=== PATIENT | female | born 1925 | race Caucasian/White ===

== ENCOUNTER 2016-03-19 22:25 | Emergency (ER) | payer MEDICARE, BC, MEDICAID ==
[~2016-03-19] VITALS: Ht 157.5 cm; Wt 49.9 kg
[~2016-03-19 22:25] MED LIST: ACETAMINOPHEN500 M2 PO; ADULT LOW DOSE81 MG PO; ALTACE10 MG PO; ASPIRIN 325MG325 MG PO; ATORVASTATIN CA20 M1 PO; CARVEDILOL3.125 MG PO; CARVEDILOL6.25 MG PO; CEFDINIR 300MG300 MG PO; CHEWABLE ASPIRI81 MG PO; CLOPIDOGREL75 MG PO; CONSTULOSE10 GM/15 M PO; COREG 3.125M3.125 MG PO; COREG6.25 MG PO; DOCUSATE SODIU100 MG PO; EPIPEN1 MG/ML MR; GOOD NEIGHBOR P20 M1 PO; HYDROCODONE-APA1 TA1 PO; LACTULOSE10 GM/15 M PO; LEVAQUIN500 MG PO; LORTAB 5/500 501 TAB PO; MECLIZINE HYDRO25 MG PO; MECLIZINE12.5 M1 PO; MECLIZINE12.5 MG PO; MECLIZINE25 MG PO; MIRTAZAPINE30 MG PO; NITROQUICK0.4 MG SL; ONDANSETRON HYDR4 MG PO; OYSTER SHELL 51 EACH PO; OYSTER SHELL CA1 T11 PO; PRAVACHOL 20MG.20 MG PO; TEARS NATURALE OP
[2016-03-19] MEDS ORDERED: FEOSOL325 MG PO (22:40)
[2016-03-19 22:55] LABS: HEMOGLOBIN 9.8 g/dL (12.2-16.2); LYMPH # 1.5 K/mm3 (0.7-4.5); LYMPH % 39.5 % (10-50.0)
--- NOTE | 2016-03-19 23:22 | Emergency Room Report ---
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 PER [facility] REPORTS STARTED APPROX 30 MINUTES AGO. PT WAS GIVEN TYLENOL AND 1 X NTG BY [facility] STAFF. PT STATES SHE IS ONLY HAVING PAIN NOW WHEN SHE TAKES A DEEP BREATH Onset of symptoms date/time:03/19/16 or onset unknown for: Treatment Prior to Arrival: PT TRANSPORTED TO ED BY EMS. IV STARTED IN LEFT FOREARM. 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 N Clinical Suspician of Infection? N Mental Status: 1 - Regular (Normal Baseline) Sepsis Risk: Have you (or family members/close friends) recently traveled outside the [place]? N If Yes, where/when: Have you had exposure to infectious disease within the past month? N TB? Other? Specify: Source patient, RN notes reviewed, family, EMS, skilled nursing records, old records Exam Limitations no limitations Comment pt with chest pain and sob at [facility] Cardiac Chest Pain Chest pain indicative of cardiac No Timing/Duration this evening Severity moderate ALLERGIES Coded Allergies: Influenza Virus Vaccines (08/27/15) Penicillins (08/27/15) erythromycin base (08/27/15) etodolac (08/27/15) Home Medications Active Scripts Aspirin (Adult Low Dose Aspirin EC) 81 MG PO DAILY #30 TAB Ref 11 Prov: 08/31/15 Omeprazole 20 MG PO BID #60 TCP Ref 2 Prov: 08/31/15 Reported Medications Mirtazapine 30 MG PO QHS #10 TAB Lactulose (Lactulose) 20 GM PO DAILYP PRN BOWELS Nitroglycerin (Nitroquick) 0.4 MG SL PRN Atorvastatin Calcium 40 MG PO DAILY #90 Calcium Carbonate/Vitamin D3 (Oyster Shell 500 MG + Vit D Tb) 1 EACH PO DAILY Docusate Sodium 250 MG PO DAILYP PRN BOWEL Acetaminophen 500 MG PO Q4HP PRN FEVER/PAIN Carvedilol (Carvedilol 3.125MG) 3.125 MG PO BID Ferrous Sulfate (Feosol) 325 MG PO DAILY History Medical History General CAD? Yes Angina: Yes [place]: Yes Hypertension? Yes Hyperlipidemia? Yes CHF? No DVT? No PE? No COPD? No Asthma? No Anemia? No GERD? No Gastric ulcers? No GI Bleed? No Hernia? No Thyroid Problems? No Hypothyroidism? No CVA? Yes Seizures? No Diabetes? No Insulin Dependent: No Insulin Pump: No Home FSBS? No Renal Insuffiency? No End Stage Renal Disease? No UTI? No Stones? No BPH? No GB Disease: No Nephritic Syndrome? No Asplenia? No Hepatitis? No Sickle Cell Disease? No Arthritis? Yes Migraines? No Cataracts? No Glaucoma? No MRSA? No HIV? No TB? No Anxiety? No Depression? No Cancer? No More? No Additional hx: DEMENTIA, DYSPHAGIA Immunization Hx DT/Tetanus > 10 Years Ago Flu Refused Pneumonia Received In Past Surgical Hx Previous Surgery?Y APPENDECTOMY OVARIAN CYST REMOVAL HEMMORRHOID CABGX3 L EYE DETACHED RETINA HEART STENT Family History Family Hx Diabetes Yes CAD No Hypertension Yes Hyperlipidemia Yes Cancer Yes TB No Social History Smoking Hx Smoker: Never Smoker Tobacco: No Type N/A Are you/the child exposed to second-hand smoke: No Alcohol Alcohol: No Drugs none Review of Systems All Other Systems Reviewed and Negative Constitutional denies fever Eyes denies drainage ENT denies: ear pain, epistaxis, throat pain. Respiratory cough, denies shortness of breath, denies wheezing Cardiovascular see HPI, chest pain, denies syncope Gastrointestinal denies diarrhea, denies vomiting Genitourinary denies: dysuria, frequency, hesitancy. Musculoskeletal denies back pain, denies joint pain, denies neck pain Skin denies rash Psychiatric/Neurological denies headache, denies seizure Physical Exam Vital Signs Vital Signs Date Time Temp Pulse Resp B/P Pulse O2 O2 Flow FiO2 Ox Delivery Rate 03/20 0131 69 20 135/55 97 03/20 0050 69 20 150/73 98 03/19 2354 66 20 131/52 98 03/19 2324 66 18 113/47 94 03/19 2225 98.6 70 18 145/76 99 - WBC >12,000 or <4,000 or 10% bands? 2 or more SIRS Criteria Met? B/P:135/55 MAP:99 Creatinine >2.0? UA output<0.5ml/kg/hr for 2 hrs? Platelet count >100,000? Lactate >2.0mmol/1? INR >1.2 or PTT > than 60 sec? Evidence of Organ Dysfunction? Provider documented clinical suspician of infection? N Sepsis Criteria Count: 0 Sepsis Risk: General Appearance no apparent distress Eye Exam - bilateral eye PERRL, bilateral eye EOMI Ear, Nose, Throat normal ENT inspection Neck supple Respiratory Status No: respiratory distress. Lung Sounds bilateral: lungs clear. 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 No Results/Orders Laboratory Tests 03/19/163: Sodium 139, Potassium 3.4 L, Chloride 103, Carbon Dioxide 28, BUN 20 H, Creatinine 0.6, Estimated Creat Clear 50, Estimated GFR (MDRD) 94, Glucose 95, Calcium 8.2 L, Total Bilirubin 0.2, AST 30, ALT 23, Alkaline Phosphatase 90, Creatine Kinase 41, CK-MB (CK-2) Rel Index 1.5, CK and CKMB Interp 0.6, Troponin I 0.05, Total Protein 5.8 L, Albumin 3.0 L, Globulin 2.8, Albumin/Globulin Ratio 1.1, WBC 3.8 L, RBC 3.62 L, Hgb 9.8 L, Hct 31.5 L, MCV 87.1, RDW 18.3 H, Plt Count 191, MPV 8.4, Gran % 46.8, Gran # 1.8, Lymphocytes % 39.5, Monocytes % 5.5, Eosinophils % 7.1, Basophils % 1.1, Lymphocytes # 1.5, Monocytes # 0.2, Eosinophils # 0.3, Basophils # 0.0, PUBS MCHC 31.2 L, MCH 27.2 Current Medication Orders Sig/Adarsh Start time Last Medication Dose Route Stop Time Status Admin Sodium Chloride 10 ML PRN PRN 03/19 2245 AC IV 03/20 2236 Sodium Chloride 10 ML PRN PRN 03/19 2245 AC IV 03/20 2236 Orders Procedure Date/time Status DIET-NOTHING BY MOUTH 03/[address] CHEST W/O CONTRAST 03/[address] SCAN REQ 03/19 2355 Active ELECTROCARDIOGRAM REQUEST 03/19 2237 Active CHEST-PORTABLE 03/19 2237 Active IV SALINE LOCK 03/19 2237 Active CBC WITH AUTO DIFF 03/19 2237 Complete CARDIAC ENZYMES 03/19 2237 Complete CHEM 12 PROFILE 03/19 2237 Complete 12 LEAD EKG-JUANA (INITIAL) 03/19 2224 Active CM/EKG CM/fancy stitcher Rhythm Normal Sinus Rhythm EKG non-spec. ST/Twave chgs XRAY/CT/US XRAY/CT/US 1 XRAY chest XR interpretation by reviewed by me Xray Results abnormal (possible pxt) XRAY/CT/US [address] interpretation by discussed w/radiologist Time results known: 0141 CT Results normal/NAD Departure Departure Time of Disposition 136 Disposition DC Home or Self Care(routine) Clinical Impression Primary Impression: Chest pain Qualifiers: Chest pain type: unspecified Qualified Code: R07.9 - Chest pain, unspecified Secondary Impressions: Anemia Qualifiers: Anemia type: unspecified type Qualified Code: D64.9 - Anemia, unspecified Condition STABLE Referrals Alfa Moody MD (Family) Patient Instructions DI for Atypical Chest Pain Additional Instructions resume prev orders Discharge Counseling Counseled pt/family regarding diagnosis, test results, follow up needs ED Critical Care Critical Care No at 0141
--- NOTE | 2016-03-19 23:22 | Emergency Room Report ---
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 PER [facility] REPORTS STARTED APPROX 30 MINUTES AGO. PT WAS GIVEN TYLENOL AND 1 X NTG BY [facility] STAFF. PT STATES SHE IS ONLY HAVING PAIN NOW WHEN SHE TAKES A DEEP BREATH Onset of symptoms date/time:03/19/16 or onset unknown for: Treatment Prior to Arrival: PT TRANSPORTED TO ED BY EMS. IV STARTED IN LEFT FOREARM. 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 N Clinical Suspician of Infection? N Mental Status: 1 - Regular (Normal Baseline) Sepsis Risk: Have you (or family members/close friends) recently traveled outside the [place]? N If Yes, where/when: Have you had exposure to infectious disease within the past month? N TB? Other? Specify: Source patient, RN notes reviewed, family, EMS, [facility] records, old records Exam Limitations no limitations Comment pt with chest pain and sob at [facility] Cardiac Chest Pain Chest pain indicative of cardiac No Timing/Duration this evening Severity moderate ALLERGIES Coded Allergies: Influenza Virus Vaccines (08/27/15) Penicillins (08/27/15) erythromycin base (08/27/15) etodolac (08/27/15) Home Medications Active Scripts Aspirin (Adult Low Dose Aspirin EC) 81 MG PO DAILY #30 TAB Ref 11 Prov: 08/31/15 Omeprazole 20 MG PO BID #60 TCP Ref 2 Prov: 08/31/15 Reported Medications Mirtazapine 30 MG PO QHS #10 TAB Lactulose (Lactulose) 20 GM PO DAILYP PRN BOWELS Nitroglycerin (Nitroquick) 0.4 MG SL PRN Atorvastatin Calcium 40 MG PO DAILY #90 Calcium Carbonate/Vitamin D3 (Oyster Shell 500 MG + Vit D Tb) 1 EACH PO DAILY Docusate Sodium 250 MG PO DAILYP PRN BOWEL Acetaminophen 500 MG PO Q4HP PRN FEVER/PAIN Carvedilol (Carvedilol 3.125MG) 3.125 MG PO BID Ferrous Sulfate (Feosol) 325 MG PO DAILY History Medical History General CAD? Yes Angina: Yes [place]: Yes Hypertension? Yes Hyperlipidemia? Yes CHF? No DVT? No PE? No COPD? No Asthma? No Anemia? No GERD? No Gastric ulcers? No GI Bleed? No Hernia? No Thyroid Problems? No Hypothyroidism? No CVA? Yes Seizures? No Diabetes? No Insulin Dependent: No Insulin Pump: No Home FSBS? No Renal Insuffiency? No End Stage Renal Disease? No UTI? No Stones? No BPH? No GB Disease: No Nephritic Syndrome? No Asplenia? No Hepatitis? No Sickle Cell Disease? No Arthritis? Yes Migraines? No Cataracts? No Glaucoma? No MRSA? No HIV? No TB? No Anxiety? No Depression? No Cancer? No More? No Additional hx: DEMENTIA, DYSPHAGIA Immunization Hx DT/Tetanus > 10 Years Ago Flu Refused Pneumonia Received In Past Surgical Hx Previous Surgery?Y APPENDECTOMY OVARIAN CYST REMOVAL HEMMORRHOID CABGX3 L EYE DETACHED RETINA HEART STENT Family History Family Hx Diabetes Yes CAD No Hypertension Yes Hyperlipidemia Yes Cancer Yes TB No Social History Smoking Hx Smoker: Never Smoker Tobacco: No Type N/A Are you/the child exposed to second-hand smoke: No Alcohol Alcohol: No Drugs none Review of Systems All Other Systems Reviewed and Negative Constitutional denies fever Eyes denies drainage ENT denies: ear pain, epistaxis, throat pain. Respiratory cough, denies shortness of breath, denies wheezing Cardiovascular see HPI, chest pain, denies syncope Gastrointestinal denies diarrhea, denies vomiting Genitourinary denies: dysuria, frequency, hesitancy. Musculoskeletal denies back pain, denies joint pain, denies neck pain Skin denies rash Psychiatric/Neurological denies headache, denies seizure Physical Exam Vital Signs Vital Signs Date Time Temp Pulse Resp B/P Pulse O2 O2 Flow FiO2 Ox Delivery Rate 03/20 0131 69 20 135/55 97 03/20 0050 69 20 150/73 98 03/19 2354 66 20 131/52 98 03/19 2324 66 18 113/47 94 03/19 2225 98.6 70 18 145/76 99 - WBC >12,000 or <4,000 or 10% bands? 2 or more SIRS Criteria Met? B/P:135/55 MAP:99 Creatinine >2.0? UA output<0.5ml/kg/hr for 2 hrs? Platelet count >100,000? Lactate >2.0mmol/1? INR >1.2 or PTT > than 60 sec? Evidence of Organ Dysfunction? Provider documented clinical suspician of infection? N Sepsis Criteria Count: 0 Sepsis Risk: General Appearance no apparent distress Eye Exam - bilateral eye PERRL, bilateral eye EOMI Ear, Nose, Throat normal ENT inspection Neck supple Respiratory Status No: respiratory distress. Lung Sounds bilateral: lungs clear. 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 No Results/Orders Laboratory Tests 03/19/163: Sodium 139, Potassium 3.4 L, Chloride 103, Carbon Dioxide 28, BUN 20 H, Creatinine 0.6, Estimated Creat Clear 50, Estimated GFR (MDRD) 94, Glucose 95, Calcium 8.2 L, Total Bilirubin 0.2, AST 30, ALT 23, Alkaline Phosphatase 90, Creatine Kinase 41, CK-MB (CK-2) Rel Index 1.5, CK and CKMB Interp 0.6, Troponin I 0.05, Total Protein 5.8 L, Albumin 3.0 L, Globulin 2.8, Albumin/Globulin Ratio 1.1, WBC 3.8 L, RBC 3.62 L, Hgb 9.8 L, Hct 31.5 L, MCV 87.1, RDW 18.3 H, Plt Count 191, MPV 8.4, Gran % 46.8, Gran # 1.8, Lymphocytes % 39.5, Monocytes % 5.5, Eosinophils % 7.1, Basophils % 1.1, Lymphocytes # 1.5, Monocytes # 0.2, Eosinophils # 0.3, Basophils # 0.0, PUBS MCHC 31.2 L, MCH 27.2 Current Medication Orders Sig/Adarsh Start time Last Medication Dose Route Stop Time Status Admin Sodium Chloride 10 ML PRN PRN 03/19 2245 AC IV 03/20 2236 Sodium Chloride 10 ML PRN PRN 03/19 2245 AC IV 03/20 2236 Orders Procedure Date/time Status DIET-NOTHING BY MOUTH 03/[address] CHEST W/O CONTRAST 03/[address] SCAN REQ 03/19 2355 Active ELECTROCARDIOGRAM REQUEST 03/19 2237 Active CHEST-PORTABLE 03/19 2237 Active IV SALINE LOCK 03/19 2237 Active CBC WITH AUTO DIFF 03/19 2237 Complete CARDIAC ENZYMES 03/19 2237 Complete CHEM 12 PROFILE 03/19 2237 Complete 12 LEAD EKG-JUANA (INITIAL) 03/19 2224 Active CM/EKG CM/facility practice specialist Rhythm Normal Sinus Rhythm EKG non-spec. ST/Twave chgs XRAY/CT/US XRAY/CT/US 1 XRAY chest XR interpretation by reviewed by me Xray Results abnormal (possible pxt) XRAY/CT/US [address] interpretation by discussed w/radiologist Time results known: 0141 CT Results normal/NAD Departure Departure Time of Disposition 136 Disposition DC Home or Self Care(routine) Clinical Impression Primary Impression: Chest pain Qualifiers: Chest pain type: unspecified Qualified Code: R07.9 - Chest pain, unspecified Secondary Impressions: Anemia Qualifiers: Anemia type: unspecified type Qualified Code: D64.9 - Anemia, unspecified Condition STABLE Referrals Alfa Moody MD (Family) Patient Instructions DI for Atypical Chest Pain Additional Instructions resume prev orders Discharge Counseling Counseled pt/family regarding diagnosis, test results, follow up needs ED Critical Care Critical Care No at 0141
[2016-03-20 01:39] VITALS: BP 135/55
--- NOTE | 2016-03-20 08:46 | RADIOLOGY REPORT PS360 ---
CHEST-PORTABLE COMPARISON: Portable upright chest 08/27/2015 HISTORY: Chest pain TECHNIQUE: Portable upright chest FINDINGS: Lung sullivan are well expanded and appear clear of infiltrate. There are sternal wire sutures and surgical clips likely from previous bypass procedure. Cardiac size is normal and the vascularity is normal. No pleural fluid. IMPRESSION: Nonacute chest findings
--- NOTE | 2016-03-20 09:39 | RADIOLOGY REPORT PS360 ---
CT CHEST W/O CONTRAST COMPARISON: Portable upright chest 03/19/2016 HISTORY: Shortness of breath, chest pain TECHNIQUE: Multiaxial scans obtained from the thoracic inlet the hemidiaphragms and were performed without IV contrast. Sagittal and coronal reformatted images were evaluated as well. FINDINGS: Emphysematous changes are noted with hyperexpansion of the lung sullivan. There is a tiny cyst in the left lobe of the thyroid gland. There is mild aortic tortuosity with mild arteriosclerotic calcification of the aortic arch and there is a short metallic stent at the origin of the left subclavian artery.. There is mild cardiomegaly with left ventricular prominence. The vascularity is normal and is no evidence of failure. There are mild chronic interstitial fibrotic changes in both lower lobes more prominent left side than right. There is no acute infiltrate and there is no pneumothorax. There is a tiny calcified granuloma left lower lobe , there is a noncalcified pulmonary nodule peripheral aspect of the right lower lobe likely lateral basilar segment. This is a a slightly stable from the previous CT angiogram of the chest 07/15/2014. There are prominent multilevel degenerative changes of the thoracic spine. 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 I basically agree with the [facility] report.
== END 2016-03-20 01:47 | disposition home or self-care (01) ==
LOC: ER 22:25
PROVIDERS: Emergency Medicine
DX: R07.9 Chest pain, unspecified (principal); D64.9 Anemia, unspecified; I10 Essential (primary) hypertension; I25.10 Atherosclerotic heart disease of native coronary artery without angina pectoris; F02.81 Dementia in other diseases classified elsewhere, unspecified severity, with behavioral disturbance